=== PATIENT | male | born 1990 | race African-American/Black ===

== ENCOUNTER 2018-12-24 12:45 | Inpatient (IN) | payer OTHER ==
[2018-12-24 17:32] VITALS: BMI 24.4
--- NOTE | 2018-12-24 18:12 | HP ---
CIWA Score Nausea/Vomitin Muscle Tremors: 3 Anxiety: 3 Agitation: 3 Paroxysmal Sweats: 1-Minimal Palms Moist Orientation: 0-Oriented Tacttile Disturbances: 1-Very Mild Itch/Numbness Auditory Disturbances: 1-Very Mild Visual Disturbances: 0-None Headache: 2-Mild CIWA-Ar Total Score: 16 - Admission Criteria OASAS Guidelines: Admission for Medically Managed Detox: Requires at least one of the followin. CIWA greater than 12 2. Seizures within the past 24 hours 3. Delirium tremens within the past 24 hours 4. Hallucinations within the past 24 hours 5. Acute intervention needed for co occurring medical disorder 6. Acute intervention needed for co occurring psychiatric disorder 7. Severe withdrawal that cannot be handled at a lower level of care (continued vomiting, continued diarrhea, abnormal vital signs) requiring intravenous medication and/or fluids 8. Admission ROS BHS - HPI Chief Complaint: i need help to stop driking alcohol and marijuana Allergies/Adverse Reactions: Allergies Allergy/AdvReac Type Severity Reaction Status Date / Time No Known Allergies Allergy Verified 12/24/18 17:49 History of Present Illness: this 28 years old with alcohol dependence and cannabis dependence,seeking detox, withdrawal symptom, seen at [facility] last night receiving iv fluid,refer for detox never been in detox before nicotine dependence 3 cigarette,does not need nicotine replacement no significant period of sobriety Exam Limitations: No Limitations - Ebola screening Have you traveled outside of the country in the last 21 days: No Have you had contact with anyone from an Ebola affected area: No - Review of Systems Constitutional: Chills, Loss of Appetite, Malaise, Night Sweats, Changes in sleep, Weakness EENT: reports: Nose Congestion Respiratory: reports: No Symptoms reported Cardiac: reports: No Symptoms Reported GI: reports: Nausea, Poor Appetite, Abdominal cramping : reports: No Symptoms Reported Musculoskeletal: reports: Back Pain, Muscle Pain Integumentary: reports: Dryness Endocrine: reports: No Symptoms Reported Hematology: reports: No Symptoms Reported Psychiatric: reports: No Sypmtoms Reported, Judgement Intact, Mood/Affect Appropiate, Orientated x3 Other Systems: Reviewed and Negative Patient History - Patient Medical History Hx Anemia: No Hx Asthma: No Hx Chronic Obstructive Pulmonary Disease (COPD): No Hx Cancer: No Hx Cardiac Disorders: No Hx Congestive Heart Failure: No Hx Hypertension: No Hx Hypercholesterolemia: No Hx Pacemaker: No HX Cerebrovascular Accident: No Hx Seizures: No Hx Dementia: No Hx Diabetes: No Hx Gastrointestinal Disorders: No Hx Liver Disease: No Hx Genitourinary Disorders: No Hx Sexually Transmitted Disorders: No Hx Renal Disease (ESRD): No Hx Thyroid Disease: No Hx Human Immunodeficiency Virus (HIV): No (last hiv test 03/16 negative) Hx Hepatitis C: No Hx Depression: No Hx Suicide Attempt: No Hx Bipolar Disorder: No Hx Schizophrenia: No Other Medical History: no suicidal,no homicidal - Patient Surgical History Past Surgical History: No - PPD History Previous Implant?: Yes Documented Results: Negative w/o proof Implanted On Prior [facility] Admission?: No PPD to be Administered?: Yes - Smoking Cessation Smoking history: Current every day smoker Have you smoked in the past 12 months: Yes Aproximately how many cigarettes per day: 3 Cigars Per Day: 0 Hx Chewing Tobacco Use: No Initiated information on smoking cessation: Yes 'Breaking Loose' booklet given: 12/24/18 - Substance & Tx. History Hx Alcohol Use: Yes Hx Substance Use: Yes Substance Use Type: Alcohol, Marijuana Hx Substance Use Treatment: No - Substances abused Alcohol Substance route: Oral Frequency: Daily Amount used: liquor 2 pints/ beer- 1 six pack 12 ozs Age of first use: 18 Date of last use: 12/24/18 Marijuana/Hashish Substance route: Smoking Frequency: Daily Amount used: 1 blunt Age of first use: 18 Date of last use: 12/23/18 Family Disease History - Family Disease History Family Disease History: Other: Grandparent (alcohol) Admission Physical Exam BHS - Vital Signs Vital Signs: Vital Signs - 24 hr 12/24/18 12/24/18 17:25 17:28 Temperature 97.0 F L 97.0 F L Pulse Rate 73 73 Respiratory 17 17 Rate Blood Pressure 114/77 114/77 - Physical General Appearance: Yes: Moderate Distress, Tremorous, Irritable, Sweating, Anxious HEENTM: Yes: Normal ENT Inspection, JIMMY, Pharynx Normal Respiratory: Yes: Within Normal Limits, Lungs Clear, Normal Breath Sounds Neck: Yes: Within Normal Limits, Supple, Trachea in good position Breast: Yes: Within Normal Limits Cardiology: Yes: Within Normal Limits, Regular Rhythm, Regular Rate, S1, S2 Abdominal: Yes: Within Normal Limits, Normal Bowel Sounds, Soft Genitourinary: Yes: Within Normal Limits Back: Yes: Muscle Spasm Extremities: Yes: Normal Range of Motion, Tremors 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: 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 NML intact, Fully Oriented, Alert, Motor Strength 5/5 Integumentary: Yes: Dry Lymphatic: Yes: Within Normal Limits - Diagnostic (1) Alcohol dependence with uncomplicated withdrawal Current Visit: Yes Status: Acute (2) Alcohol dependence with uncomplicated intoxication Current Visit: Yes Status: Acute (3) Syncope Current Visit: Yes Status: Acute (4) Nicotine dependence Current Visit: Yes Status: Acute Cleared for Admission S - Detox or Rehab [facility] Level of Care: Medically Managed Detox Regimen/Protocol: Librium Breathalyzer - Breathalyzer Breathalyzer: 0.159 Urine Drug Screen - Test Device Lot number: [id number] Expiration date: 07/29/20 - Control Is test valid?: Yes - Results Drug screen NEGATIVE: No Urine drug screen results: THC-Marijuana Inpatient Rehab Admission - Rehab Decision to Admit Inpatient rehab admission?: No
[2018-12-24] MEDS ORDERED: IBUPROFEN 400 MG TABLET (FP) PO PRN (18:20)
[2018-12-24] MEDS ORDERED: hydrOXYzine PAMOATE 25 MG CAPSULE (FP) PO PRN (18:20)
[2018-12-24] MEDS ORDERED: METHOCARBAMOL 500 MG TABLET PO PRN (18:20)
[2018-12-24] MEDS ORDERED: MAGNESIUM HYDROX 2400MG/30ML ORAL SUSPENSION 30 ML CUP PO PRN (18:20)
[2018-12-24] MEDS ORDERED: MAG HYDROX/AL HYDROX/SIMETH 30 ML UNIT-DOSE CUP PO PRN (18:20)
[2018-12-24] MEDS ORDERED: BISMUTH SUBSALICYLATE 524 MG/30 ML UD PO PRN (18:20)
[2018-12-24] MEDS ORDERED: MAGNESIUM CITRATE 300 ML BOTTLE PO PRN (18:20)
[2018-12-24] MEDS ORDERED: chlordiazePOXIDE HCL 25 MG CAPSULE PO PRN (18:20)
[2018-12-24] MEDS ORDERED: ACETAMINOPHEN 325 MG TABLET (FP) PO PRN ×2 (18:20)
[2018-12-24] MEDS ORDERED: MENTHOL/PHENOL 1 EACH UD MM PRN (18:20)
[2018-12-24] MEDS: chlordiazePOXIDE HCL 25 MG CAPSULE PO SCH (22:24)
[2018-12-24] MEDS: THIAMINE HCL 100 MG TABLET (FP) PO SCH (22:24)
[2018-12-25] MEDS: chlordiazePOXIDE HCL 25 MG CAPSULE PO SCH ×4 (05:18→22:15)
[2018-12-25] MEDS: PRENATAL VITAMINS W/ FOLIC ACID TABLET (FP) PO SCH (10:20)
[2018-12-25 10:56] LABS: HEMATOCRIT 38.6 % (35.4-49); HEMOGLOBIN 12.7 GM/dL (11.7-16.9); MEAN CELL VOLUME 90.8 fl (80-96); MEAN PLT VOLUME 8.2 fl (7.5-11.1); PLATELET COUNT 190 K/MM3 (134-434); RBC 4.25 M/mm3 (4.00-5.60); RDW 14.2 % (11.9-15.9); WHITE BLOOD COUNT 3.7 K/mm3 (4.0-10.0)
[2018-12-25 11:01] LABS: ALBUMIN 3.7 g/dl (3.4-5.0); ALK PHOS 63 U/L (45-117); ANION GAP 8 MMOL/L (8-16); BILIRUBIN,TOTAL 0.8 mg/dL (0.2-1); BLOOD UREA NITROGEN 15 mg/dL (7-18); CALCIUM 9.1 mg/dL (8.5-10.1); CHLORIDE 105 mmol/L (98-107); CO2 26 mmol/L (21-32); GLUCOSE,RANDOM 73 mg/dL (74-106); POTASSIUM 3.9 mmol/L (3.5-5.1); SGOT/AST 44 U/L (15-37); SGPT/ALT 40 U/L (13-61); SODIUM 139 mmol/L (136-145); TOT PROT 7.2 g/dl (6.4-8.2)
[2018-12-25 11:20] LABS: SICKLE CELL SCREEN NEGATIVE (NEGATIVE)
--- NOTE | 2018-12-25 16:05 | PN ---
[facility] CIWA - CIWA Score Nausea/Vomitin-Mild Nausea/No Vomiting Muscle Tremors: 4-Moderate,w/Arms Extend Anxiety: 3 Agitation: 2 Paroxysmal Sweats: 1-Minimal Palms Moist Orientation: 1-Uncertain about Date Tacttile Disturbances: 0-None Auditory Disturbances: 0-None Visual Disturbances: 0-None Headache: 0-None Present CIWA-Ar Total Score: 12 S Progress Note (SOAP) Subjective: doing well with librium detox regimen feeling ok today ambulating on hallway social with peers in day room Objective: 12/25/18 16:08 Vital Signs Temperature 98.5 F 12/25/18 14:34 Pulse Rate 80 12/25/18 15:30 Respiratory Rate 18 12/25/18 15:30 Blood Pressure 136/75 12/25/18 14:34 O2 Sat by Pulse Oximetry (%) Laboratory Last Values WBC 3.7 K/mm3 (4.0-10.0) L 12/25/18 07:00 RBC 4.25 M/mm3 (4.00-5.60) 12/25/18 07:00 Hgb 12.7 GM/dL (11.7-16.9) 12/25/18 07:00 Hct 38.6 % (35.4-49) 12/25/18 07:00 MCV 90.8 fl (80-96) 12/25/18 07:00 MCH 30.0 pg (25.7-33.7) 12/25/18 07:00 MCHC 33.0 g/dl (32.0-35.9) 12/25/18 07:00 RDW 14.2 % (11.9-15.9) 12/25/18 07:00 Plt Count 190 K/MM3 (134-434) 12/25/18 07:00 MPV 8.2 fl (7.5-11.1) 12/25/18 07:00 Sickle Cell Screen Negative (NEGATIVE) 12/25/18 07:00 Sodium 139 mmol/L (136-145) 12/25/18 07:00 Potassium 3.9 mmol/L (3.5-5.1) 12/25/18 07:00 Chloride 105 mmol/L (98-107) 12/25/18 07:00 Carbon Dioxide 26 mmol/L (21-32) 12/25/18 07:00 Anion Gap 8 MMOL/L (8-16) 12/25/18 07:00 BUN 15 mg/dL (7-18) 12/25/18 07:00 Creatinine 1.0 mg/dL (0.55-1.3) 12/25/18 07:00 Creat Clearance w eGFR 89.63 (>60) 12/25/18 07:00 Random Glucose 73 mg/dL (74-106) L 12/25/18 07:00 Calcium 9.1 mg/dL (8.5-10.1) 12/25/18 07:00 Total Bilirubin 0.8 mg/dL (0.2-1) 12/25/18 07:00 AST 44 U/L (15-37) H 12/25/18 07:00 ALT 40 U/L (13-61) 12/25/18 07:00 Alkaline Phosphatase 63 U/L (45-117) 12/25/18 07:00 Total Protein 7.2 g/dl (6.4-8.2) 12/25/18 07:00 Albumin 3.7 g/dl (3.4-5.0) 12/25/18 07:00 RPR Titer Nonreactive (NONREACTIVE) 12/25/18 07:00 lab noted Assessment: 12/25/18 16:08 withdrawal sx Plan: continue detox
[2018-12-25] MEDS: THIAMINE HCL 100 MG TABLET (FP) PO SCH (22:15)
[2018-12-26] MEDS: chlordiazePOXIDE HCL 25 MG CAPSULE PO SCH ×3 (05:08→17:44)
[2018-12-26] MEDS: PRENATAL VITAMINS W/ FOLIC ACID TABLET (FP) PO SCH (10:05)
--- NOTE | 2018-12-26 11:02 | EKG ---
Test Reason : Blood Pressure : / mmHG Vent. Rate : 067 BPM Atrial Rate : 067 BPM P-R Int : 144 ms QRS Dur : 084 ms QT Int : 398 ms P-R-T Axes : 010 071 055 degrees QTc Int : 420 ms NORMAL SINUS RHYTHM NORMAL ECG NO PREVIOUS ECGS AVAILABLE Confirmed by ROSALVA SUMMERS MD ([id number]) on 12/26/2018 11:01:49 AM Referred By: Confirmed By:ROSALVA SUMMERS MD
--- NOTE | 2018-12-26 14:42 | PN ---
S CIWA - CIWA Score Nausea/Vomitin Muscle Tremors: 3 Anxiety: 0-No Anxiety, at Ease Agitation: 1-Slight > Activity Paroxysmal Sweats: 2 Orientation: 0-Oriented Tacttile Disturbances: 2-Mild Itch/Numbness/Burn Auditory Disturbances: 0-None Visual Disturbances: 0-None Headache: 0-None Present CIWA-Ar Total Score: 10 BHS Progress Note (SOAP) Subjective: Tremors, Sweating, Nausea (Mild). Patient Reports That Current withdrawal symptoms are gradually subsiding in severity. Objective: PATIENT A & O X 3, OBSERVED AMBULATING ON UNIT UNASSISTED. IN NO ACUTE DISTRESS. 12/26/18 14:40 Vital Signs Temperature 97.0 F L 12/26/18 13:10 Pulse Rate 59 L 12/26/18 13:10 Respiratory Rate 18 12/26/18 13:10 Blood Pressure 122/70 12/26/18 13:10 O2 Sat by Pulse Oximetry (%) Laboratory Tests 12/25/18 12/25/18 12/25/18 07:00 07:00 07:00 WBC 3.7 L RBC 4.25 Hgb 12.7 Hct 38.6 MCV 90.8 MCH 30.0 MCHC 33.0 RDW 14.2 Plt Count 190 MPV 8.2 Sickle Cell Screen Negative Sodium 139 Potassium 3.9 Chloride 105 Carbon Dioxide 26 Anion Gap 8 BUN 15 Creatinine 1.0 Creat Clearance w eGFR 89.63 Random Glucose 73 L Calcium 9.1 Total Bilirubin 0.8 AST 44 H ALT 40 Alkaline Phosphatase 63 Total Protein 7.2 Albumin 3.7 RPR Titer Nonreactive LABS NOTED. Assessment: 12/26/18 14:41 WITHDRAWAL SYMPTOMS. LEUKOPENIA. 12/26/18 14:42 Plan: CONTINUE DETOX.
[2018-12-26] MEDS: THIAMINE HCL 100 MG TABLET (FP) PO SCH (22:11)
[2018-12-26] MEDS: MELATONIN 5 MG TABLETS PO PRN (22:11)
[2018-12-26] MEDS: chlordiazePOXIDE HCL 10 MG CAPSULE PO SCH (22:11)
[2018-12-26] MEDS ORDERED: chlordiazePOXIDE HCL 10 MG CAPSULE PO PRN (23:00)
[2018-12-27] MEDS: chlordiazePOXIDE HCL 10 MG CAPSULE PO SCH ×3 (05:10→16:49)
[2018-12-27] MEDS: PRENATAL VITAMINS W/ FOLIC ACID TABLET (FP) PO SCH (10:18)
--- NOTE | 2018-12-27 16:06 | PN ---
[facility] CIWA - CIWA Score Nausea/Vomitin-No Nausea/No Vomiting Muscle Tremors: 1-None Visible, but [place] Anxiety: 1-Mildly Anxious Agitation: 1-Slight > Activity Paroxysmal Sweats: 1-Minimal Palms Moist Orientation: 0-Oriented Tacttile Disturbances: 0-None Auditory Disturbances: 0-None Visual Disturbances: 0-None Headache: 1-Very Mild CIWA-Ar Total Score: 5 S Progress Note (SOAP) Subjective: feeling ok today social with peers in day room get along with the roommate ambulating on hallway discuss aftercare with staff Objective: 12/27/18 16:06 Vital Signs Temperature 97.5 F L 12/27/18 13:22 Pulse Rate 71 12/27/18 13:22 Respiratory Rate 18 12/27/18 13:22 Blood Pressure 146/62 12/27/18 13:22 O2 Sat by Pulse Oximetry (%) Laboratory Last Values WBC 3.7 K/mm3 (4.0-10.0) L 12/25/18 07:00 RBC 4.25 M/mm3 (4.00-5.60) 12/25/18 07:00 Hgb 12.7 GM/dL (11.7-16.9) 12/25/18 07:00 Hct 38.6 % (35.4-49) 12/25/18 07:00 MCV 90.8 fl (80-96) 12/25/18 07:00 MCH 30.0 pg (25.7-33.7) 12/25/18 07:00 MCHC 33.0 g/dl (32.0-35.9) 12/25/18 07:00 RDW 14.2 % (11.9-15.9) 12/25/18 07:00 Plt Count 190 K/MM3 (134-434) 12/25/18 07:00 MPV 8.2 fl (7.5-11.1) 12/25/18 07:00 Sickle Cell Screen Negative (NEGATIVE) 12/25/18 07:00 Sodium 139 mmol/L (136-145) 12/25/18 07:00 Potassium 3.9 mmol/L (3.5-5.1) 12/25/18 07:00 Chloride 105 mmol/L (98-107) 12/25/18 07:00 Carbon Dioxide 26 mmol/L (21-32) 12/25/18 07:00 Anion Gap 8 MMOL/L (8-16) 12/25/18 07:00 BUN 15 mg/dL (7-18) 12/25/18 07:00 Creatinine 1.0 mg/dL (0.55-1.3) 12/25/18 07:00 Creat Clearance w eGFR 89.63 (>60) 12/25/18 07:00 Random Glucose 73 mg/dL (74-106) L 12/25/18 07:00 Calcium 9.1 mg/dL (8.5-10.1) 12/25/18 07:00 Total Bilirubin 0.8 mg/dL (0.2-1) 12/25/18 07:00 AST 44 U/L (15-37) H 12/25/18 07:00 ALT 40 U/L (13-61) 12/25/18 07:00 Alkaline Phosphatase 63 U/L (45-117) 12/25/18 07:00 Total Protein 7.2 g/dl (6.4-8.2) 12/25/18 07:00 Albumin 3.7 g/dl (3.4-5.0) 12/25/18 07:00 RPR Titer Nonreactive (NONREACTIVE) 12/25/18 07:00 lab noted Assessment: 12/27/18 16:06 withdrawal sx Plan: continue detox
[2018-12-27] MEDS: THIAMINE HCL 100 MG TABLET (FP) PO SCH (22:02)
[2018-12-27] MEDS: MELATONIN 5 MG TABLETS PO PRN (22:02)
[2018-12-27] MEDS ORDERED: chlordiazePOXIDE HCL 10 MG CAPSULE PO SCH (23:00)
[2018-12-28 06:37] VITALS: BP 115/66; PULSE 47; TEMP 96.3
--- NOTE | 2018-12-28 11:27 | DS ---
[facility] Detox Discharge Summary Admission Date: 12/24/18 Discharge Date: 12/28/18 - History Present History: Alcohol Dependence Additional Comments: 28 years old male admitted on 12/24/18 for alcohol withdrawal stabilization completed detox regimen aftercare community self help meeting and support group Pertinent Past History: bring in medication list and lab report to follow up appointment - Physical Exam Results Vital Signs: Vital Signs Temperature 96.3 F L 12/28/18 06:36 Pulse Rate 47 L 12/28/18 06:36 Respiratory Rate 18 12/28/18 06:36 Blood Pressure 115/66 12/28/18 06:36 O2 Sat by Pulse Oximetry (%) Pertinent Admission Physical Exam Findings: alcohol withdrawal sx Laboratory Last Values WBC 3.7 K/mm3 (4.0-10.0) L 12/25/18 07:00 RBC 4.25 M/mm3 (4.00-5.60) 12/25/18 07:00 Hgb 12.7 GM/dL (11.7-16.9) 12/25/18 07:00 Hct 38.6 % (35.4-49) 12/25/18 07:00 MCV 90.8 fl (80-96) 12/25/18 07:00 MCH 30.0 pg (25.7-33.7) 12/25/18 07:00 MCHC 33.0 g/dl (32.0-35.9) 12/25/18 07:00 RDW 14.2 % (11.9-15.9) 12/25/18 07:00 Plt Count 190 K/MM3 (134-434) 12/25/18 07:00 MPV 8.2 fl (7.5-11.1) 12/25/18 07:00 Sickle Cell Screen Negative (NEGATIVE) 12/25/18 07:00 Sodium 139 mmol/L (136-145) 12/25/18 07:00 Potassium 3.9 mmol/L (3.5-5.1) 12/25/18 07:00 Chloride 105 mmol/L (98-107) 12/25/18 07:00 Carbon Dioxide 26 mmol/L (21-32) 12/25/18 07:00 Anion Gap 8 MMOL/L (8-16) 12/25/18 07:00 BUN 15 mg/dL (7-18) 12/25/18 07:00 Creatinine 1.0 mg/dL (0.55-1.3) 12/25/18 07:00 Creat Clearance w eGFR 89.63 (>60) 12/25/18 07:00 Random Glucose 73 mg/dL (74-106) L 12/25/18 07:00 Calcium 9.1 mg/dL (8.5-10.1) 12/25/18 07:00 Total Bilirubin 0.8 mg/dL (0.2-1) 12/25/18 07:00 AST 44 U/L (15-37) H 12/25/18 07:00 ALT 40 U/L (13-61) 12/25/18 07:00 Alkaline Phosphatase 63 U/L (45-117) 12/25/18 07:00 Total Protein 7.2 g/dl (6.4-8.2) 12/25/18 07:00 Albumin 3.7 g/dl (3.4-5.0) 12/25/18 07:00 RPR Titer Nonreactive (NONREACTIVE) 12/25/18 07:00 lab noted - Treatment Hospital Course: Detox Protocol Followed, Detoxed Safely, Responded well, Discharged Condition Good, Rehab Referral Accepted Patient has Accepted a Rehab Referral to: community self help group - Medication Discharge Medications: Ambulatory Orders NK [No Known Home Medication] 12/24/18 - Diagnosis (1) Alcohol dependence with uncomplicated intoxication Status: Acute (2) Nicotine dependence Status: Acute Qualifiers: Nicotine product type: cigarettes Substance use status: in withdrawal Qualified Code(s): F17.213 - Nicotine dependence, cigarettes, with withdrawal - AMA Did Patient Leave Against Medical Advice: No
== END 2018-12-28 08:50 | disposition home or self-care (01) | DRG 775 ==
LOC: YASAS 12:45 → Y3N 18:29
PROVIDERS: ADMIT Surgery; ATTEND Surgery
PROC: HZ2ZZZZ Detoxification Services for Substance Abuse Treatment (ICD-10-PCS; principal; 2018-12-24)
DX: F10.230 Alcohol dependence with withdrawal, uncomplicated (principal); F10.220 Alcohol dependence with intoxication, uncomplicated; F12.20 Cannabis dependence, uncomplicated; F17.210 Nicotine dependence, cigarettes, uncomplicated; R55 Syncope and collapse
CPT/HCPCS: 36415; 80053; 85027; 85660; 86593; 93005; 93010

== ENCOUNTER 2019-01-15 12:00 | Inpatient (IN) | payer OTHER ==
[2019-01-15 12:20] VITALS: BMI 23.8
--- NOTE | 2019-01-15 12:57 | HP ---
CIWA Score Nausea/Vomitin Muscle Tremors: 2 Anxiety: 2 Agitation: 0-Normal Activity Paroxysmal Sweats: 2 Orientation: 0-Oriented Tacttile Disturbances: 1-Very Mild Itch/Numbness Auditory Disturbances: 0-None Visual Disturbances: 0-None Headache: 2-Mild CIWA-Ar Total Score: 12 - Admission Criteria OASAS Guidelines: Admission for Medically Managed Detox: Requires at least one of the followin. CIWA greater than 12 2. Seizures within the past 24 hours 3. Delirium tremens within the past 24 hours 4. Hallucinations within the past 24 hours 5. Acute intervention needed for co occurring medical disorder 6. Acute intervention needed for co occurring psychiatric disorder 7. Severe withdrawal that cannot be handled at a lower level of care (continued vomiting, continued diarrhea, abnormal vital signs) requiring intravenous medication and/or fluids 8. Patient presents the following: CIWA greater than 12 Admission Criteria Met: Admission criteria met Admission ROS [facility] Chief Complaint: alcohol withdrawal symptoms Allergies/Adverse Reactions: Allergies Allergy/AdvReac Type Severity Reaction Status Date / Time No Known Allergies Allergy Verified 12/24/18 17:49 History of Present Illness: Patient is a 28 year old male with hx of dependence and cannabis dependence is here seeking inpatient detox. Patient reports was seen at [facility] [place] emergency room two days ago d/t alcohol withdrawal symptoms. Last detox [facility] -12/28/18, reports relapsed soon after, longest period of sobriety two weeks. Denies medical and psych hx. Denies suicidal / homicidal ideation. Denies hx of seizures. Reports hx of blackouts with last episode one day ago. Exam Limitations: No Limitations - Ebola screening Have you traveled outside of the country in the last 21 days: No (N) Have you had contact with anyone from an Ebola affected area: No Do you have a fever: No - Review of Systems Constitutional: Chills, Loss of Appetite, Weakness, Unintentional Wgt. Loss EENT: reports: No Symptoms Reported Respiratory: reports: No Symptoms reported Cardiac: reports: No Symptoms Reported GI: reports: Nausea, Poor Appetite, Poor Fluid Intake : reports: No Symptoms Reported Musculoskeletal: reports: No Symptoms Reported Integumentary: reports: Dryness Neuro: reports: Headache Endocrine: reports: Increased Thirst Hematology: reports: No Symptoms Reported Psychiatric: reports: Orientated x3, Anxious Other Systems: Reviewed and Negative Patient History - Patient Medical History Hx Anemia: No Hx Asthma: No Hx Chronic Obstructive Pulmonary Disease (COPD): No Hx Cancer: No Hx Cardiac Disorders: No Hx Congestive Heart Failure: No Hx Hypertension: No Hx Hypercholesterolemia: No Hx Pacemaker: No HX Cerebrovascular Accident: No Hx Seizures: No Hx Dementia: No Hx Diabetes: No Hx Gastrointestinal Disorders: No Hx Liver Disease: No Hx Genitourinary Disorders: No Hx Sexually Transmitted Disorders: No Hx Renal Disease (ESRD): No Hx Thyroid Disease: No Hx Human Immunodeficiency Virus (HIV): No (last hiv test 03/16 negative) Hx Hepatitis C: No Hx Depression: No Hx Suicide Attempt: No Hx Bipolar Disorder: No Hx Schizophrenia: No - Patient Surgical History Past Surgical History: No Hx Neurologic Surgery: No Hx Cataract Extraction: No Hx Cardiac Surgery: No Hx Lung Surgery: No Hx Breast Surgery: No Hx Breast Biopsy: No Hx Abdominal Surgery: No Hx Appendectomy: No Hx Cholecystectomy: No Hx Genitourinary Surgery: No Hx Section: No Hx Orthopedic Surgery: No Anesthesia Reaction: No - PPD History Previous Implant?: No Documented Results: Negative w/proof Date: 12/26/18 PPD to be Administered?: No - Smoking Cessation Smoking history: Current every day smoker Have you smoked in the past 12 months: Yes Aproximately how many cigarettes per day: 5 Cigars Per Day: 0 Hx Chewing Tobacco Use: No Initiated information on smoking cessation: Yes 'Breaking Loose' booklet given: 01/15/19 - Substance & Tx. History Hx Alcohol Use: Yes Hx Substance Use: Yes Substance Use Type: Alcohol, Marijuana Hx Substance Use Treatment: Yes (Last detox [facility] 12/24/18 -12/28/18) - Substances abused Alcohol Substance route: Oral Frequency: Daily Amount used: one fith of liquor Age of first use: 18 Date of last use: 01/14/19 Marijuana/Hashish Substance route: Smoking Frequency: Daily Amount used: 1 blunt Age of first use: 18 Date of last use: 01/14/19 Family Disease History - Family Disease History Family Disease History: Other: Grandparent (alcohol) Admission Physical Exam BHS - Vital Signs Vital Signs: Vital Signs - 24 hr 01/15/19 12:14 Temperature 97.3 F L Pulse Rate 123 H Respiratory 19 Rate Blood Pressure 120/74 - Physical General Appearance: Yes: Appropriately Dressed, Disheveled, Alcohol on Breath, Thin, Sweating, Anxious HEENTM: Yes: Hearing grossly Normal, Normal ENT Inspection, Normocephalic, Normal Voice, JIMMY, Pharynx Normal, Tm's normal Respiratory: Yes: Lungs Clear, Normal Breath Sounds, No Respiratory Distress, No Accessory Muscle Use Neck: Yes: Within Normal Limits Breast: Yes: Breast Exam Deferred Cardiology: Yes: Regular Rhythm, Regular Rate Abdominal: Yes: Normal Bowel Sounds, Non Tender, Flat, Soft Genitourinary: Yes: Within Normal Limits Back: Yes: Normal Inspection Musculoskeletal: Yes: full range of Motion, Gait Steady, Pelvis Stable Extremities: Yes: Normal Capillary Refill, Normal Inspection, Normal Range of Motion 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 NML intact, Fully Oriented, Alert, Motor Strength 5/5 Integumentary: Yes: Normal Color, Warm, Diaphoresis Lymphatic: Yes: Within Normal Limits - Diagnostic (1) Cannabis dependence Current Visit: Yes Status: Acute (2) Alcohol dependence with uncomplicated withdrawal Current Visit: Yes Status: Acute (3) Nicotine dependence Current Visit: Yes Status: Acute Qualifiers: Nicotine product type: cigarettes Substance use status: in withdrawal Qualified Code(s): F17.213 - Nicotine dependence, cigarettes, with withdrawal Cleared for Admission S - Detox or Rehab [facility] Level of Care: Medically Managed Detox Regimen/Protocol: Librium Breathalyzer - Breathalyzer Breathalyzer: 0 Urine Drug Screen - Test Device Lot number: [id number] Expiration date: 09/29/20 - Control Is test valid?: Yes - Results Drug screen NEGATIVE: No Urine drug screen results: THC-Marijuana, BZO-Benzodiazepines Inpatient Rehab Admission - Rehab Decision to Admit Inpatient rehab admission?: No
[2019-01-15] MEDS ORDERED: hydrOXYzine PAMOATE 25 MG CAPSULE (FP) PO PRN (12:59)
[2019-01-15] MEDS ORDERED: BISMUTH SUBSALICYLATE 524 MG/30 ML UD PO PRN (12:59)
[2019-01-15] MEDS ORDERED: MAGNESIUM HYDROX 2400MG/30ML ORAL SUSPENSION 30 ML CUP PO PRN (12:59)
[2019-01-15] MEDS ORDERED: NICOTINE POLACRILEX 2 MG GUM BUC PRN (12:59)
[2019-01-15] MEDS ORDERED: METHOCARBAMOL 500 MG TABLET PO PRN (12:59)
[2019-01-15] MEDS ORDERED: IBUPROFEN 400 MG TABLET (FP) PO PRN (12:59)
[2019-01-15] MEDS ORDERED: MENTHOL/PHENOL 1 EACH UD MM PRN (12:59)
[2019-01-15] MEDS ORDERED: MAG HYDROX/AL HYDROX/SIMETH 30 ML UNIT-DOSE CUP PO PRN (12:59)
[2019-01-15] MEDS ORDERED: ACETAMINOPHEN 325 MG TABLET (FP) PO PRN ×2 (12:59)
[2019-01-15] MEDS ORDERED: MAGNESIUM CITRATE 300 ML BOTTLE PO PRN (12:59)
[2019-01-15] MEDS ORDERED: chlordiazePOXIDE HCL 25 MG CAPSULE PO PRN (12:59)
[2019-01-15 17:33] LABS: HYALINE CASTS 11 /lpf (0-8); PH,URINE 5.5 (5.0-8.0); URINE APPEARANCE TURBID; URINE BACTERIA 1.2 /hpf (NEGATIVE); URINE BILIRUBIN NEGATIVE (NEGATIVE); URINE COLOR YELLOW; URINE GLUCOSE (UA) NEGATIVE (NEGATIVE); URINE KETONE 2+ (NEGATIVE); URINE LEUK ESTERASE NEGATIVE (NEGATIVE); URINE NITRITE NEGATIVE (NEGATIVE); URINE PROTEIN 2+ (NEGATIVE); URINE RBC 1 /hpf (0-4); URINE UROBILINOGEN 0.2 mg/dL (0.2-1.0); URINE WBC 1 /hpf (0-5)
[2019-01-15] MEDS: chlordiazePOXIDE HCL 25 MG CAPSULE PO SCH ×2 (17:53→22:20)
[2019-01-15] MEDS: THIAMINE HCL 100 MG TABLET (FP) PO SCH (22:20)
[2019-01-15] MEDS: MELATONIN 5 MG TABLETS PO PRN (22:20)
[2019-01-16] MEDS: chlordiazePOXIDE HCL 25 MG CAPSULE PO SCH ×4 (05:45→22:13)
[2019-01-16 10:01] LABS: ALBUMIN 4.2 g/dl (3.4-5.0); BILIRUBIN,TOTAL 1.4 mg/dL (0.2-1); CALCIUM 9.5 mg/dL (8.5-10.1); CREATININE 1.1 mg/dL (0.55-1.3); POTASSIUM 3.4 mmol/L (3.5-5.1); TOT PROT 7.8 g/dl (6.4-8.2)
[2019-01-16] MEDS: PRENATAL VITAMINS W/ FOLIC ACID TABLET (FP) PO SCH (10:11)
[2019-01-16] MEDS: NICOTINE 14 MG/24 HOURS TOPICAL PATCH TD SCH (10:11)
[2019-01-16 10:15] LABS: HEMATOCRIT 42.8 % (35.4-49); MCH 29.1 pg (25.7-33.7); MCHC 32.8 g/dl (32.0-35.9); MEAN CELL VOLUME 88.6 fl (80-96); MEAN PLT VOLUME 8.5 fl (7.5-11.1); PLATELET COUNT 261 K/MM3 (134-434); RBC 4.82 M/mm3 (4.00-5.60)
--- NOTE | 2019-01-16 11:20 | PN ---
[facility] CIWA - CIWA Score Nausea/Vomitin-No Nausea/No Vomiting Muscle Tremors: 2 Anxiety: 3 Agitation: 2 Paroxysmal Sweats: 2 Orientation: 0-Oriented Tacttile Disturbances: 0-None Auditory Disturbances: 0-None Visual Disturbances: 0-None Headache: 0-None Present CIWA-Ar Total Score: 9 BHS Progress Note (SOAP) Subjective: sweats anxiety interrupted sleep Objective: 01/16/19 11:19 Vital Signs Temperature 97.9 F 01/16/19 09:34 Pulse Rate 67 01/16/19 09:34 Respiratory Rate 18 01/16/19 09:34 Blood Pressure 113/58 L 01/16/19 09:34 O2 Sat by Pulse Oximetry (%) Laboratory Tests 01/15/19 01/16/19 01/16/19 14:00 07:00 07:00 WBC 4.0 RBC 4.82 Hgb 14.0 Hct 42.8 MCV 88.6 MCH 29.1 MCHC 32.8 RDW 13.0 Plt Count 261 D MPV 8.5 Sodium 136 Potassium 3.4 L Chloride 98 Carbon Dioxide 30 Anion Gap 8 BUN 16 Creatinine 1.1 Est GFR (CKD-EPI)AfAm 106.06 Est GFR (CKD-EPI)NonAf 91.51 Random Glucose 98 Calcium 9.5 Total Bilirubin 1.4 H AST 85 H ALT 72 H Alkaline Phosphatase 68 Total Protein 7.8 Albumin 4.2 Urine Color Yellow Urine Appearance Turbid Urine pH 5.5 Ur Specific [place] 1.033 Urine Protein 2+ H Urine Glucose (UA) Negative Urine Ketones 2+ H Urine Blood Negative Urine Nitrite Negative Urine Bilirubin Negative Urine Urobilinogen 0.2 Ur Leukocyte Esterase Negative Urine WBC (Auto) 1 Urine RBC (Auto) 1 Urine Casts (Auto) 11 U Epithel Cells (Auto) 1.0 Urine Bacteria (Auto) 1.2 labs noted hypokalemaia 3.2; replenish with kdur 20meqx 2 days aaox3 ambulating no acute distress Assessment: 01/16/19 11:21 withdrawal sx Plan: continue detox increase fluids kdur ordered
[2019-01-16] MEDS: POTASSIUM CHLORIDE TABS 20 MEQ TABLET.ER (FP) PO SCH (14:41)
[2019-01-16] MEDS: MELATONIN 5 MG TABLETS PO PRN (22:13)
[2019-01-16] MEDS: THIAMINE HCL 100 MG TABLET (FP) PO SCH (22:13)
[2019-01-17] MEDS: chlordiazePOXIDE HCL 25 MG CAPSULE PO SCH ×2 (05:56→10:21)
--- NOTE | 2019-01-17 10:11 | PN ---
S CIWA - CIWA Score Nausea/Vomitin-No Nausea/No Vomiting Muscle Tremors: 2 Anxiety: 1-Mildly Anxious Agitation: 2 Paroxysmal Sweats: 2 Orientation: 0-Oriented Tacttile Disturbances: 0-None Auditory Disturbances: 0-None Visual Disturbances: 0-None Headache: 0-None Present CIWA-Ar Total Score: 7 BHS Progress Note (SOAP) Subjective: feeling better sweats Objective: 01/17/19 10:10 Vital Signs Temperature 97.9 F 01/17/19 09:28 Pulse Rate 79 01/17/19 09:28 Respiratory Rate 18 01/17/19 09:28 Blood Pressure 129/87 01/17/19 09:28 O2 Sat by Pulse Oximetry (%) Laboratory Tests 01/15/19 01/16/19 01/16/19 14:00 07:00 07:00 WBC 4.0 RBC 4.82 Hgb 14.0 Hct 42.8 MCV 88.6 MCH 29.1 MCHC 32.8 RDW 13.0 Plt Count 261 D MPV 8.5 Sodium 136 Potassium 3.4 L Chloride 98 Carbon Dioxide 30 Anion Gap 8 BUN 16 Creatinine 1.1 Est GFR (CKD-EPI)AfAm 106.06 Est GFR (CKD-EPI)NonAf 91.51 Random Glucose 98 Calcium 9.5 Total Bilirubin 1.4 H AST 85 H ALT 72 H Alkaline Phosphatase 68 Total Protein 7.8 Albumin 4.2 Urine Color Yellow Urine Appearance Turbid Urine pH 5.5 Ur Specific [place] 1.033 Urine Protein 2+ H Urine Glucose (UA) Negative Urine Ketones 2+ H Urine Blood Negative Urine Nitrite Negative Urine Bilirubin Negative Urine Urobilinogen 0.2 Ur Leukocyte Esterase Negative Urine WBC (Auto) 1 Urine RBC (Auto) 1 Urine Casts (Auto) 11 U Epithel Cells (Auto) 1.0 Urine Bacteria (Auto) 1.2 RPR Titer 01/16/19 07:00 WBC RBC Hgb Hct MCV MCH MCHC RDW Plt Count MPV Sodium Potassium Chloride Carbon Dioxide Anion Gap BUN Creatinine Est GFR (CKD-EPI)AfAm Est GFR (CKD-EPI)NonAf Random Glucose Calcium Total Bilirubin AST ALT Alkaline Phosphatase Total Protein Albumin Urine Color Urine Appearance Urine pH Ur Specific [place] Urine Protein Urine Glucose (UA) Urine Ketones Urine Blood Urine Nitrite Urine Bilirubin Urine Urobilinogen Ur Leukocyte Esterase Urine WBC (Auto) Urine RBC (Auto) Urine Casts (Auto) U Epithel Cells (Auto) Urine Bacteria (Auto) RPR Titer Nonreactive aaox3 ambulating no acute distress Assessment: 01/17/19 10:10 mild withdrawal sx Plan: continue detox increase fluids
[2019-01-17] MEDS: NICOTINE 14 MG/24 HOURS TOPICAL PATCH TD SCH (10:20)
[2019-01-17] MEDS: PRENATAL VITAMINS W/ FOLIC ACID TABLET (FP) PO SCH (10:21)
[2019-01-17] MEDS: POTASSIUM CHLORIDE TABS 20 MEQ TABLET.ER (FP) PO SCH (10:21)
[2019-01-17] MEDS ORDERED: chlordiazePOXIDE HCL 10 MG CAPSULE PO PRN (17:00)
[2019-01-17] MEDS: chlordiazePOXIDE HCL 10 MG CAPSULE PO SCH ×2 (17:46→22:02)
[2019-01-17] MEDS: MELATONIN 5 MG TABLETS PO PRN (22:02)
[2019-01-17] MEDS: THIAMINE HCL 100 MG TABLET (FP) PO SCH (22:02)
[2019-01-18] MEDS: chlordiazePOXIDE HCL 10 MG CAPSULE PO SCH ×3 (06:28→17:41)
[2019-01-18] MEDS: POTASSIUM CHLORIDE TABS 20 MEQ TABLET.ER (FP) PO SCH (10:26)
[2019-01-18] MEDS: PRENATAL VITAMINS W/ FOLIC ACID TABLET (FP) PO SCH (10:26)
[2019-01-18] MEDS: NICOTINE 14 MG/24 HOURS TOPICAL PATCH TD SCH (10:27)
--- NOTE | 2019-01-18 11:37 | PN ---
[facility] Progress Note (SOAP) Subjective: tired feeling better Objective: 01/18/19 11:36 Vital Signs Temperature 97.7 F 01/18/19 11:04 Pulse Rate 90 01/18/19 11:04 Respiratory Rate 18 01/18/19 11:04 Blood Pressure 139/73 01/18/19 11:04 O2 Sat by Pulse Oximetry (%) aaox3 ambulating no acute distress Assessment: 01/18/19 11:36 mild withdrawal sx Plan: continue detox increase fluids
--- NOTE | 2019-01-18 17:06 | CONSULT ---
[facility] Psychiatric Consult - Data Date of interview: 01/18/19 Admission source: [facility] Identifying data: First admission to [facility] for this 28 y/o AA male self- referred for detoxification (cannabis, alcohol). Examined on . Patient is single, no children, homeless, unemployed and deprived of financial assistance Substance Abuse History: Confirmed by the patient in this session. Details in current [facility] report as follows : Smoking history: Current every day smoker. Have you smoked in the past 12 months: Yes. Aproximately how many cigarettes per day: 5. Cigars Per Day: 0. Hx Chewing Tobacco Use: No. Initiated information on smoking cessation: Yes. 'Breaking Loose' booklet given: . - Substance & Tx. History. Hx Alcohol Use: Yes. Hx Substance Use: Yes. Substance Use Type: Alcohol, Marijuana. Hx Substance Use Treatment: Yes (Last detox [facility] 12/24/18 -12/28/18). - Substances abused. Alcohol. Substance route : Oral. Frequency: Daily. Amount used: one fith of liquor. Age of first use: 18. Date of last use: 01/14/19. Marijuana/Hashish. Substance route: Smoking. Frequency: Daily. Amount used: 1 blunt. Age of first use: 18. Date of last use: 01/14/19 Medical History: Patient endorses goood general health. Psychiatric History: Patient denies. Physical/Sexual Abuse/Trauma History: Patient denies. Additional Comment: Urine drug screen results: THC-Marijuana, BZO- Benzodiazepines. Noted. Mental Status Exam - Mental Status Exam Alert and Oriented to: Time, Place, Person Cognitive Function: Good Patient Appearance: Well Groomed (tattoos on both arms + forearms) Mood: Hopeful Affect: Appropriate, Normal Range Patient Behavior: Appropriate (friendly), Cooperative Speech Pattern: Clear, Appropriate Voice Loudness: Normal Thought Process: Intact, Goal Oriented Thought Disorder: Not Present Hallucinations: Denies Suicidal Ideation: Denies Homicidal Ideation: Denies Insight/Judgement: Poor Sleep: Well Appetite: Good Muscle strength/Tone: Normal Gait/Station: Normal Psychiatric Findings - Problem List ([place] 1, 2,3) (1) Alcohol dependence with uncomplicated withdrawal Current Visit: Yes Status: Acute (2) Cannabis dependence Current Visit: Yes Status: Chronic (3) Nicotine dependence Current Visit: Yes Status: Chronic Qualifiers: Nicotine product type: cigarettes Substance use status: in withdrawal Qualified Code(s): F17.213 - Nicotine dependence, cigarettes, with withdrawal - Initial Treatment Plan Initial Treatment Plan: Stable mental status. Patient wishes to enter rehabilitation after completion of detoxification. Discussed with counselor. Psychoeducation. Sleep hygiene. AA meetings. Support. Motivational counseling. Observation.
[2019-01-18] MEDS: MELATONIN 5 MG TABLETS PO PRN (22:08)
[2019-01-18] MEDS: THIAMINE HCL 100 MG TABLET (FP) PO SCH (22:09)
[2019-01-18 22:56] VITALS: PULSE 73
[2019-01-19] MEDS: chlordiazePOXIDE HCL 10 MG CAPSULE PO SCH (06:08)
[2019-01-19 09:21] VITALS: BP 139/79; TEMP 97.7
--- NOTE | 2019-01-19 09:47 | DS ---
[facility] Detox Discharge Summary Admission Date: 01/15/19 Discharge Date: 01/19/19 - History Present History: Alcohol Dependence - Physical Exam Results Vital Signs: Vital Signs Temperature 97.7 F 01/19/19 09:16 Pulse Rate 73 01/19/19 09:16 Respiratory Rate 18 01/19/19 09:16 Blood Pressure 139/79 01/19/19 09:16 O2 Sat by Pulse Oximetry (%) - Treatment Hospital Course: Detox Protocol Followed, Detoxed Safely, Responded well, Discharged Condition Good, Rehab Referral Accepted - Medication Discharge Medications: Ambulatory Orders NK [No Known Home Medication] 12/24/18 - Diagnosis (1) Alcohol dependence with uncomplicated withdrawal Current Visit: Yes Status: Chronic (2) Cannabis dependence Current Visit: Yes Status: Chronic (3) Nicotine dependence Current Visit: Yes Status: Chronic Qualifiers: Nicotine product type: cigarettes Substance use status: uncomplicated Qualified Code(s): F17.210 - Nicotine dependence, cigarettes, uncomplicated (4) Syncope Current Visit: No Status: Acute - AMA Did Patient Leave Against Medical Advice: No (referred to [facility])
== END 2019-01-19 10:40 | disposition home or self-care (01) | DRG 775 ==
LOC: YASAS 12:00 → Y6N 13:00
PROVIDERS: ADMIT Surgery; ATTEND Surgery
PROC: HZ2ZZZZ Detoxification Services for Substance Abuse Treatment (ICD-10-PCS; principal; 2019-01-15)
DX: F10.230 Alcohol dependence with withdrawal, uncomplicated (principal); F12.20 Cannabis dependence, uncomplicated; F17.213 Nicotine dependence, cigarettes, with withdrawal; E87.6 Hypokalemia; Z86.79 Personal history of other diseases of the circulatory system
CPT/HCPCS: 36415; 80053; 81003; 85027; 86593